=== PATIENT | female | born 1935 | race Caucasian/White ===

== ENCOUNTER 2019-03-26 16:27 | Emergency (ER) | payer OTHER ==
[2019-03-26 16:33] VITALS: BMI 29.2
--- NOTE | 2019-03-26 17:46 | PDOC ---
History of Present Illness - General Chief Complaint: Diarrhea Stated Complaint: DIZZNESS/DIARRHEA Past History - Past Medical History Allergies/Adverse Reactions: Allergies Allergy/AdvReac Type Severity Reaction Status Date / Time No Known Allergies Allergy Verified 03/26/19 16:33 Home Medications: Ambulatory Orders Sulfamethoxazole/Trimethoprim [Bactrim Ds -] 1 tab PO BID #14 tablet 03/26/19 Cancer: Yes (colon) COPD: No Dementia: Yes HTN: Yes Hypercholesterolemia: Yes - Surgical History Abdominal Surgery: Yes - Psycho Social/Smoking Cessation Hx Smoking History: Never smoked *Physical Exam - Vital Signs Last Vital Signs Temp Pulse Resp BP Pulse Ox 97.6 F 58 L 18 202/76 H 99 03/26/19 16:30 03/26/19 16:30 03/26/19 16:30 03/26/19 16:30 03/26/19 16:30 ED Treatment Course - LABORATORY CBC & Chemistry Diagram: 03/26/19 19:40 03/26/19 19:40 Medical Decision Making - Medical Decision Making 03/26/19 18:20 HPI: 83yo Mosotho-speaking female hx NIDDM, HTN, HLD, vertigo (not on medication), and Alzheimers, on B12 injections (missed doses in last 2 weeks) presents from home c/o 1 day of gradual onset since yesterday afternoon generalized weakness, nausea, decreased appetite, intermittent SOB and MESSINA, feeling hot/diaphoresis, intermittent vertigo (only when moves, same as chronic vertigo), a few episodes of NB diarrhea, and concern for high BP (not measured at home). Pt was in [place] yesterday AM and ate breakfast, then gradually worsened throughout day, worst today. Usually walks without assistance but today requires 2-person assistance 2 /2 generalized weakness. Pt has been compliant with all meds except has not been able to take B12 injections for past 2 weeks; took all other meds today as prescribed. Denies flu shot, sick contacts, recent travel, recent abx use. Denies rhinorrhea, sore throat, congestion, ear pain, tinnitus, myalgias, fever , chills, headache, light-headedness, syncope, difficulty speaking, numbness/ tingling, focal weakness, vision changes, cough, chest pain, palpitations, leg swelling, abdominal pain, blood in stool, constipation, vomiting, dysuria, hematuria, confusion. PCP - in [place] (lives in [place] with one daughter; here with other daughter who pt has been staying with in [place] for past 3 days) ROS: Constitutional: Positive for feeing hot, generalized weakness, and diaphoresis. Negative for chills, fever. HENT: Negative for sore throat, rhinorrhea, congestion. Eyes: Negative for visual disturbance. Respiratory: Positive for shortness of breath. Negative for cough, and wheezing. Cardiovascular: Positive for MESSINA. Negative for chest pain, palpitations, and leg swelling. Gastrointestinal: Positive for nausea and diarrhea. Negative for abdominal pain , blood in stool, constipation, and vomiting. Genitourinary: Negative for dysuria, flank pain, and hematuria. Musculoskeletal: Negative for myalgias, back pain, and neck pain. Skin: Negative for rash. Neurological: Positive for vertigo. Negative for light-headedness, syncope, focal weakness, numbness and headaches. Psychiatric/Behavioral: Negative for behavioral problems and confusion. PE: Gen: Alert, NAD, comfortable-appearing. HEENT: PERRL, EOMI, MMM, NCAT. No conjunctival pallor. Sclera are non-icteric. CV: Regular rate and rhythm. +systolic ejection murmur. No rubs, or gallops. PULM: No resp distress. CTAB, no wheezes, rales, or rhonchi. ABD: soft, NT/ND, no rebound tenderness or guarding, no CVA tenderness. BACK: No TTP of c/t/l-spine. No step-offs or deformities. MSK: No bony deformities. 2+ pulses in all extremities. NEURO: AAOx3. PERRL. CN 2-12 intact. 5/5 strength in all extremities. Sensation to light touch intact in all extremities. No pronator drift. No dysmetria. No dysdiadochokinesia. No abnormal nystagmus. EXTREMITIES: No cyanosis. No clubbing. No edema. No calf tenderness. PSYCH: Normal mood and thought pattern. SKIN: Warm and dry. Normal capillary refill. No rashes. ?jaundice. MDM: 83yo Mosotho-speaking female hx NIDDM, HTN, HLD, vertigo (not on medication), and Alzheimers, on B12 injections (missed doses in last 2 weeks) presents from home with 1 day of gradual onset generalized weakness, nausea, decreased appetite, intermittent SOB and MESSINA, feeling hot/diaphoresis, intermittent vertigo (only when moves, same as chronic vertigo), a few episodes of NB diarrhea, and concern for high BP (not measured at home). BP 202/76, slightly bradycardic 58, other VSS, afebrile, neurologically intact, benign abdomen. HTN: elevated BP 202/76 without headache or focal neurologic deficit. Possibly 2 /2 malabsorption of medications 2/2 diarrhea. No indication for treatment at this time. Obtain labs to r/o end-organ damage and HTN emergency. Ddx generalized weakness: dehydration, metabolic derangement, anemia, arrhythmia , ACS/TN (low concern due to lack of hx or CP, but due to MESSINA and RFs, r/o with EKG and cardiac profile), thyroid pathology, B12/folate deficiency, infection Ddx nausea, diarrhea: viral gastroenteritis, flu (low concern due to lack of myalgias, sore throat, headache, fever), food poisoning, metabolic derangement, anemia, B12 deficiency. Low concern for emergent GI pathology such as pancreatitis, appendicitis, diverticulitis, or GB pathology due to lack of abdominal pain, abdominal TTP, vomiting, or fever. Ddx vertigo: vertigo only with movement consistent with her chronic BPPV, resolved at this time. Meclizine and reassess. No tinnitus. No head injury, headache, neurologic deficit, or nystagmus concerning for ICH or posterior stroke at this time. HiNTS not applicable since not experiencing vertigo or nystagmus at time of evaluation. No neck stiffness, photophobia, headache, or fever concerning for meningitis. -EKG -CXR -Finger stick -CBC,CMP,Coags,Mg,Phos,Cardiac profile,TSH,B12,Folate,Methylmalonic acid and homocysteine,Lipase,UA/UC -Flu -Meclizine, Zofran, IVF -Dispo: pending w/u and reassessment 03/26/19 19:01 EKG reviewed: sinus bradycardia, 53bpm, normal intervals, normal axis, no ST elevations or depressions, +TWI in III, +TW flattening in aVF and V2, no prior EKG for comparison 03/26/19 19:[address] Morgan Mack. Discharge - Discharge Information Problems reviewed: Yes Clinical Impression/Diagnosis: Difficulty breathing Vomiting Qualifiers: Vomiting type: unspecified Vomiting Intractability: unspecified Nausea presence : unspecified Qualified Code(s): R11.10 - Vomiting, unspecified Condition: Improved Disposition: HOME - Additional Discharge Information Prescriptions: Sulfamethoxazole/Trimethoprim [Bactrim Ds -] 1 tab PO BID #14 tablet - Follow up/Referral - Patient Discharge Instructions Patient Printed Discharge Instructions: DI for Viral Gastroenteritis -- Adult, DI for Urinary Tract Infection (UTI) Additional Instructions: You were seen in the emergency room for difficulty breathing, weakness and diarrhea While in the emergency room, we evaluated you with lab work, blood work and imaging including an x ray of your chest. We found that your symptoms were likely caused by a viral infection of your stomach. We also found that you have a urinary tract infection. To treat your urinary tract infection, please take the following medication Bactrim DS two times a day for 7 days, by mouth We also found that your blood pressure was elevated in the emergency room. We monitored you till your blood pressure normalized. Please ensure you take your blood pressure medication on time and also measure your blood pressure at home. Please take all your medications as prescribed Please follow up with your primary care physician in 1 week Return to the emergency room, if your experience worsening of your symptoms, nausea, vomiting, diarrhea, weakness, chest pain or worsening of you condition. - Post Discharge Activity
[2019-03-26] MEDS ORDERED: ONDANSETRON 4 MG/2 ML VIAL IVPUSH ONE (18:08)
[2019-03-26] MEDS ORDERED: MECLIZINE HCL 25 MG TABLET (FP) PO ONE (18:08)
[2019-03-26] MEDS ORDERED: SODIUM CHLORIDE 0.9% 500 ML INFUS.BAG IV ONE (18:08)
[2019-03-26] MEDS ORDERED: MECLIZINE HCL 25 MG TABLET (FP) ONE (19:37)
[2019-03-26] MEDS ORDERED: ONDANSETRON 4 MG/2 ML VIAL ONE (19:38)
[2019-03-26 20:09] LABS: BASO % 0.2 % (0-2.0); EOS % 0.8 % (0-4.5); HEMATOCRIT 37.6 % (32.4-45.2); HEMOGLOBIN 12.4 GM/dL (10.7-15.3); LYMPH % 26.5 % (8-40); MCH 30.2 pg (25.7-33.7); MEAN CELL VOLUME 91.5 fl (80-96); MEAN PLT VOLUME 9.5 fl (7.5-11.1); MONO % 5.4 % (3.8-10.2); NEUT % 67.1 % (42.8-82.8); PLATELET COUNT 297 K/MM3 (134-434); RBC 4.11 M/mm3 (3.60-5.2); RDW 13.6 % (11.6-15.6); WHITE BLOOD COUNT 7.9 K/mm3 (4.0-10.0)
[2019-03-26 20:21] LABS: INR 1.01 (0.83-1.09); PROTHROMBIN TIME (PATIENT) 11.9 SEC (9.7-13.0)
[2019-03-26 20:23] LABS: ACTIVATED PTT 29.6 SECONDS (25.2-36.5)
[2019-03-26 21:10] LABS: ALK PHOS 114 U/L (45-117); ANION GAP 8 MMOL/L (8-16); BILIRUBIN,TOTAL 0.5 mg/dL (0.2-1); CALCIUM 9.4 mg/dL (8.5-10.1); CHLORIDE 104 mmol/L (98-107); CO2 25 mmol/L (21-32); CREATININE 0.7 mg/dL (0.55-1.3); GLUCOSE,RANDOM 112 mg/dL (74-106); LIPASE 81 U/L (73-393); MAGNESIUM 1.6 mg/dL (1.8-2.4); PHOSPHOROUS 3.3 mg/dL (2.5-4.9); POTASSIUM 3.9 mmol/L (3.5-5.1); SGOT/AST 18 U/L (15-37); SGPT/ALT 21 U/L (13-61); SODIUM 137 mmol/L (136-145); TOT PROT 7.8 g/dl (6.4-8.2)
[2019-03-26 21:32] LABS: EPI CELLS 0.9 /HPF (0-5/HPF); HYALINE CASTS 0 /lpf (0-8); URINE APPEARANCE CLEAR; URINE BACTERIA 7668.8 /hpf (NEGATIVE); URINE BILIRUBIN NEGATIVE (NEGATIVE); URINE COLOR YELLOW; URINE GLUCOSE (UA) NEGATIVE (NEGATIVE); URINE KETONE NEGATIVE (NEGATIVE); URINE LEUK ESTERASE TRACE (NEGATIVE); URINE NITRITE NEGATIVE (NEGATIVE); URINE PROTEIN NEGATIVE (NEGATIVE); URINE RBC 0 /hpf (0-4); URINE UROBILINOGEN 0.2 mg/dL (0.2-1.0); URINE WBC 2 /hpf (0-5)
--- NOTE | 2019-03-26 22:54 | PDOC ---
Documentation entered by Lluvia Yeung SCRIBE, acting as scribe for Vic Gonzales MD. Vic Gonzales MD: This documentation has been prepared by the scribe, Lluvia Yeung SCRIBE, under my direction and personally reviewed by me in its entirety. I confirm that the documentation accurately reflects all work, treatment, procedures, and medical decision making performed by me. Attending Attestation - Resident Resident Name: Hollie Nielson - ED Attending Attestation I have performed the following: I have examined & evaluated the patient, The case was reviewed & discussed with the resident, I agree w/resident's findings & plan, Exceptions are as noted - HPI HPI: 03/26/19 18:41 The patient is an 83-year-old female with a past medical history significant for NIDDM, HTN, HLD, Alzheimer's, dementia, and GERD who presents to the emergency department with vertigo, nausea, and diarrhea. The patient reports a 2 -day history of dizziness and nausea, which has been ongoing this morning and afternoon, promoting the ED visit. The patient has some episodes of vomiting yesterday, denies vomiting today. The patient reports associated symptoms of weakness and 3 episodes of loose stool, denies hematochezia or melena. The patient states additional complaints of intermittent episodes of shortness of breath while lying down. Denies abdominal pain, fever, chills, exertional chest pain, dyspnea on exertion, diaphoresis, or sick contact. Allergies: NKA Social history: patient lives with sister in [place], and is here visiting family. PCP: In [place]. - Physicial Exam PE: 03/26/19 20:01 GENERAL: The patient is awake, alert, Nontoxic - in no acute distress. HEAD: Normocephalic, atraumatic. EYES: extraocular movements intact, sclera anicteric, conjunctiva clear. ENT: Normal voice, Moist mucous membranes. NECK: Normal range of motion, supple without lymphadenopathy, JVD, or masses. LUNGS: Breath sounds equal, clear to auscultation bilaterally. No wheezes, no crackles, no rales. HEART: Regular rate and rhythm, normal S1 and S2 without murmur, rub or gallop. ABDOMEN: Soft, nontender, normoactive bowel sounds. No guarding, no rebound. No masses. EXTREMITIES: Normal range of motion, no edema. No clubbing or cyanosis. No cords, erythema, or tenderness. NEUROLOGICAL: No facial asymmetry, Normal speech PSYCH: Normal mood, normal affect. SKIN: Warm, Dry, normal turgor, no rashes or lesions noted. - Medical Decision Making 03/26/19 18:46 83y F hx of alzheimers, NIDDM, HTN, HL, vertigo, presents with complaint of feeling intermitent dizines the past 2 days that i only there when she i walkin around - associated wih mild nausea earlier, also notes 3 episodes of loose non bloody stool today and generalized weakness. pt also notes some sob occaionaly when she is sleeping. denies any dent, cp w exertion, palps, lighheadedness. Pt denies any abdominal pain, fever/chills, cp, bpr, current nausea, headache, vision changes, focal numnbess/tingling/wekaness, dysarthria. exam unremakble will ck lbas to screen fo metabolic derangements 03/26/19 22:48 lbas reviewed pt masha montero bp impoved will dc with pmd fu return precautions were discussed
--- NOTE | 2019-03-26 23:11 | PDOC ---
*Physical Exam - Vital Signs Last Vital Signs Temp Pulse Resp BP Pulse Ox 97.6 F 58 L 18 202/76 H 99 03/26/19 16:30 03/26/19 16:30 03/26/19 16:30 03/26/19 16:30 03/26/19 16:30 - Physical Exam General Appearance: Yes: Nourished, Appropriately Dressed HEENT: positive: EOMI, MELONY, Normal ENT Inspection, Pharynx Normal Neck: positive: Trachea midline, Normal Thyroid, Supple Respiratory/Chest: positive: Lungs Clear, Normal Breath Sounds. negative: Crackles, Wheezing Cardiovascular: positive: Regular Rhythm, Regular Rate, S1, S2. negative: Murmur, Gallop/S3, Gallop/S4 Vascular Pulses: Dorsalis-Pedis (R): 2+, Doralis-Pedis (L): 2+ Gastrointestinal/Abdominal: positive: Normal Bowel Sounds, Soft. negative: Distended, Guarding, Rebound Neurologic: positive: Fully Oriented, Alert, Normal Mood/Affect ED Treatment Course - LABORATORY CBC & Chemistry Diagram: 03/26/19 19:40 03/26/19 19:40 - ADDITIONAL ORDERS Additional order review: Laboratory Results 03/26/19 03/26/19 03/26/19 20:49 19:40 19:40 PT with INR 11.90 INR 1.01 PTT (Actin FS) 29.6 Sodium Potassium Chloride Carbon Dioxide Anion Gap BUN Creatinine Est GFR (CKD-EPI)AfAm Est GFR (CKD-EPI)NonAf Random Glucose Lactic Acid 1.4 Calcium Phosphorus Magnesium Total Bilirubin AST ALT Alkaline Phosphatase Creatine Kinase Troponin I Total Protein Albumin Lipase Vitamin B12 Serum Folate TSH Urine Color Yellow Urine Appearance Clear Urine pH 6.0 Ur Specific [place] 1.006 L Urine Protein Negative Urine Glucose (UA) Negative Urine Ketones Negative Urine Blood Negative Urine Nitrite Negative Urine Bilirubin Negative Urine Urobilinogen 0.2 Ur Leukocyte Esterase Trace Urine WBC (Auto) 2 Urine RBC (Auto) 0 Urine Casts (Auto) 0 U Epithel Cells (Auto) 0.9 Urine Bacteria (Auto) 7668.8 03/26/19 19:40 PT with INR INR PTT (Actin FS) Sodium 137 Potassium 3.9 Chloride 104 Carbon Dioxide 25 Anion Gap 8 BUN 14.0 Creatinine 0.7 Est GFR (CKD-EPI)AfAm 94.18 Est GFR (CKD-EPI)NonAf 81.26 Random Glucose 112 H Lactic Acid Calcium 9.4 Phosphorus 3.3 Magnesium 1.6 L Total Bilirubin 0.5 AST 18 ALT 21 Alkaline Phosphatase 114 Creatine Kinase 35 Troponin I < 0.02 Total Protein 7.8 Albumin 4.0 Lipase 81 Vitamin B12 519 Serum Folate 25 H TSH 1.45 Urine Color Urine Appearance Urine pH Ur Specific [place] Urine Protein Urine Glucose (UA) Urine Ketones Urine Blood Urine Nitrite Urine Bilirubin Urine Urobilinogen Ur Leukocyte Esterase Urine WBC (Auto) Urine RBC (Auto) Urine Casts (Auto) U Epithel Cells (Auto) Urine Bacteria (Auto) 03/26/19 19:40 RBC 4.11 MCV 91.5 MCHC 33.0 RDW 13.6 MPV 9.5 Neutrophils % 67.1 Lymphocytes % 26.5 Monocytes % 5.4 Eosinophils % 0.8 Basophils % 0.2 - Medications Given in the ED: ED Medications Discontinued Medications Generic Name Dose Route Start Last Admin Trade Name Freq PRN Reason Stop Dose Admin Meclizine HCl 25 mg 03/26/19 18:08 03/26/19 19:54 Antivert - PO 03/26/19 18:09 25 mg ONCE ONE Administration Ondansetron HCl 4 mg 03/26/19 18:08 03/26/19 19:55 Zofran Injection IVPUSH 03/26/19 18:09 4 mg ONCE ONE Administration Sodium Chloride 1,000 ml 03/26/19 18:08 03/26/19 19:54 Normal Saline - IV 03/26/19 18:09 1,000 ml ONCE ONE Administration Medical Decision Making - Medical Decision Making 83 y/o F, alzheimers, NIDDM, HTN, HL, vertigo, presented with SOB, loose stool and generalized weakness #SOB and Generalized weakness 2/2 to diarrhea from likely viral gastroenteritis now resolved CBC, CMP normal UA positive for UTI Pt discharged home on Bactrim DS BID x7days Blood pressure now down to 155/68 Educated pt on checking BP and compliance with BP meds D/c planning 03/26/19 23:29 Discharge - Discharge Information Problems reviewed: Yes Clinical Impression/Diagnosis: Difficulty breathing Vomiting Qualifiers: Vomiting type: unspecified Vomiting Intractability: unspecified Nausea presence : unspecified Qualified Code(s): R11.10 - Vomiting, unspecified Condition: Improved Disposition: HOME - Admission No - Additional Discharge Information Prescriptions: Sulfamethoxazole/Trimethoprim [Bactrim Ds -] 1 tab PO BID #14 tablet - Follow up/Referral - Patient Discharge Instructions Patient Printed Discharge Instructions: DI for Viral Gastroenteritis -- Adult, DI for Urinary Tract Infection (UTI) Additional Instructions: You were seen in the emergency room for difficulty breathing, weakness and diarrhea While in the emergency room, we evaluated you with lab work, blood work and imaging including an x ray of your chest. We found that your symptoms were likely caused by a viral infection of your stomach. We also found that you have a urinary tract infection. To treat your urinary tract infection, please take the following medication Bactrim DS two times a day for 7 days, by mouth We also found that your blood pressure was elevated in the emergency room. We monitored you till your blood pressure normalized. Please ensure you take your blood pressure medication on time and also measure your blood pressure at home. Please take all your medications as prescribed Please follow up with your primary care physician in 1 week Return to the emergency room, if your experience worsening of your symptoms, nausea, vomiting, diarrhea, weakness, chest pain or worsening of you condition. - Post Discharge Activity
[2019-03-27 00:17] VITALS: BP 154/62; PULSE 55; TEMP 98
--- NOTE | 2019-03-27 11:29 | EKG ---
Test Reason : Blood Pressure : / mmHG Vent. Rate : 053 BPM Atrial Rate : 053 BPM P-R Int : 136 ms QRS Dur : 082 ms QT Int : 482 ms P-R-T Axes : 029 -16 009 degrees QTc Int : 452 ms SINUS BRADYCARDIA MINIMAL VOLTAGE CRITERIA FOR LVH, MAY BE NORMAL VARIANT SEPTAL INFARCT , AGE UNDETERMINED ABNORMAL ECG NO PREVIOUS ECGS AVAILABLE Confirmed by ILANA WHITE MD ([id number]) on 03/27/2019 11:28:55 AM Referred By: Confirmed By:ILANA WHITE MD
== END 2019-03-27 00:17 | disposition home or self-care (01) ==
LOC: JER 16:27
PROC: 3E033GC Introduction of Other Therapeutic Substance into Peripheral Vein, Percutaneous Approach (ICD-10-PCS; principal; 2019-03-26)
DX: N39.0 Urinary tract infection, site not specified (principal); K52.9 Noninfective gastroenteritis and colitis, unspecified; R06.02 Shortness of breath; I10 Essential (primary) hypertension; E78.5 Hyperlipidemia, unspecified; E11.9 Type 2 diabetes mellitus without complications; Z79.84 Long term (current) use of oral hypoglycemic drugs; G30.9 Alzheimer's disease, unspecified; F02.80 Dementia in other diseases classified elsewhere, unspecified severity, without behavioral disturbance, psychotic disturbance, mood disturbance, and anxiety; Z85.038 Personal history of other malignant neoplasm of large intestine
CPT/HCPCS: 36415; 71045-TC-FY; 80053; 81003; 82136; 82550; 82607; 82746; 83605; 83690; 83735; 83918; 84100; 84443; 84484; 85025; 85610; 85730; 87086; 87186; 87804; 93005; 93010; 96374; 99283-25

== ENCOUNTER 2019-03-30 19:39 | Emergency (ER) | payer OTHER ==
[2019-03-30 20:14] VITALS: TEMP 97.8; BMI 27.4
--- NOTE | 2019-03-30 22:37 | PDOC ---
History of Present Illness - General Chief Complaint: Nausea Stated Complaint: vomiting/nausea Time Seen by Provider: 03/30/19 22:36 Past History - Past Medical History Allergies/Adverse Reactions: Allergies Allergy/AdvReac Type Severity Reaction Status Date / Time No Known Allergies Allergy Verified 03/26/19 16:33 Home Medications: Ambulatory Orders Sulfamethoxazole/Trimethoprim [Bactrim Ds -] 1 tab PO BID #14 tablet 03/26/19 Meclizine HCl 25 mg PO DAILY PRN #6 tablet 03/31/19 Cancer: Yes (colon) COPD: No Dementia: Yes HTN: Yes Hypercholesterolemia: Yes - Surgical History Abdominal Surgery: Yes - Psycho Social/Smoking Cessation Hx Smoking History: Never smoked *Physical Exam - Vital Signs Last Vital Signs Temp Pulse Resp BP Pulse Ox 97.8 F 51 L 19 140/74 98 03/30/19 20:10 03/30/19 20:10 03/30/19 20:10 03/30/19 20:10 03/30/19 20:10 ED Treatment Course - LABORATORY CBC & Chemistry Diagram: 03/31/19 01:26 03/31/19 01:26 Medical Decision Making - Medical Decision Making 03/30/19 22:55 HPI: 83yo Kinyarwanda-speaking female hx NIDDM, HTN, HLD, vertigo (not on medication), and Alzheimers, on B12 injections (missed doses in last 2 weeks) presents from home c/o generalized weakness (improving) and intermittent nausea and vertigo only with movement exactly the same as chronic vertigo, improved with meclizine and zofran during prior ED visit 03/26/19, requesting prescriptions for both. Pt was here 03/16/19 for generalized weakness, nausea, decreased appetite, intermittent SOB and MESSINA, feeling hot, intermittent vertigo, and diarrhea, dx with UTI and started on Bactrim, has been taking as prescribed. Pt was given zofran and meclizine 03/26/19 with improvement in vertigo and nausea. Since discharge pt was feeling better, all sx resolved except for generalized weakness and feelign hot, which are improving, pt now able to walk on own. Yesterday night the intermittent episodes of nausea and vertigo returned, 1 episode today at 1300, exactly the same as chronic vertigo. Pt was not given meclizine or zofran rx and would like those. Pt has been taking BP meds as prescribed. Denies flu shot, sick contacts, recent travel, head injury. Denies rhinorrhea, sore throat, congestion, ear pain, tinnitus, myalgias, fever, chills , headache, light-headedness, syncope, difficulty speaking, numbness/tingling, focal weakness, vision changes, cough, chest pain, palpitations, leg swelling, abdominal pain, blood in stool, constipation, vomiting, dysuria, hematuria, confusion, decreased appetitie, SOB, MESSINA, diaphoresis, diarrhea. PCP - in [place] (lives in [place] with one daughter; here with other daughter who pt has been staying with in [place] for past week) ROS: Constitutional: Positive for feeling hot, generalized weakness. Negative for chills, fever, and diaphoresis. HENT: Negative for sore throat, rhinorrhea, congestion. Eyes: Negative for visual disturbance. Respiratory: Negative for shortness of breath, cough, and wheezing. Cardiovascular: Negative for chest pain, palpitations, MESSINA, and leg swelling. Gastrointestinal: Positive for nausea. Negative for abdominal pain, blood in stool, constipation, diarrhea, and vomiting. Genitourinary: Negative for dysuria, flank pain, and hematuria. Musculoskeletal: Negative for myalgias, back pain, and neck pain. Skin: Negative for rash. Neurological: Positive for vertigo. Negative for light-headedness, syncope, focal weakness, numbness and headaches. Psychiatric/Behavioral: Negative for behavioral problems and confusion. PE: Gen: Alert, NAD, comfortable-appearing. HEENT: PERRL, EOMI, MMM, NCAT. No conjunctival pallor. Sclera are non-icteric. CV: Regular rate and rhythm. +systolic ejection murmur. No rubs, or gallops. PULM: No resp distress. CTAB, no wheezes, rales, or rhonchi. ABD: soft, NT/ND, no rebound tenderness or guarding, no CVA tenderness. BACK: No TTP of c/t/l-spine. No step-offs or deformities. MSK: No bony deformities. 2+ pulses in all extremities. NEURO: AAOx3. PERRL. CN 2-12 intact. 5/5 strength in all extremities. Sensation to light touch intact in all extremities. No pronator drift. No dysmetria. No dysdiadochokinesia. No abnormal nystagmus. EXTREMITIES: No cyanosis. No clubbing. No edema. No calf tenderness. PSYCH: Normal mood and thought pattern. SKIN: Warm and dry. Normal capillary refill. No rashes. MDM: 83yo Kinyarwanda-speaking female hx NIDDM, HTN, HLD, vertigo (not on medication), and Alzheimers, on B12 injections (missed doses in last 2 weeks) presents from home with generalized weakness (improving) and intermittent nausea and vertigo only with movement exactly the same as chronic vertigo, improved with meclizine and zofran during prior ED visit 03/26/19, requesting prescriptions for both. Bradycardic to 51 (58 on 03/26/19), other VSS, afebrile, neurologically intact, benign abdomen exam. 03/26/19 w/u: EKG, CXR,CBC,CMP,Coags,Mg,Phos,Cardiac profile,TSH,B12,Folate, Methylmalonic acid and homocysteine,Lipase,UA/UC,flu. Of note, UA positive for UTI, UC grew Klebsiella susceptible to Bactrim. Pt has been taking Bactrim as prescribed since d/c; denies urinary sx. Pt's dizziness and nausea at that time resolved with Zofran, Meclizine, and IVF. Nausea, vertigo: Due to sx only with movement, improvement of nausea and vomiting with meclizine, sx consistent with chronic vertigo, most likely BPPV, resolved at this time. No tinnitus. No head injury, headache, neurologic deficit , or nystagmus concerning for ICH or posterior stroke at this time. HiNTS not applicable since not experiencing vertigo or nystagmus at time of evaluation. No neck stiffness, photophobia, headache, or fever concerning for meningitis. Consider orthostatic hypotension - obtain orthostatic VS. Generalized weakness: improving since 03/26/19. Most likely 2/2 UTI, UC grows Klebsiella susceptible to current tx Bactrim. Pt eating and drinking well. No neuro deficits. Pt able to walk without assistance. No fever, chills, vomiting, diarrhea, abdominal pain, chest pain, difficulty breathing, or new symptoms concerning for anemia, ACS/NV, thyroid pathology, systemic infection. 03/26/19 results w/u only positive for UTI, no new sx since. -EKG -Orthostatic VS -Dispo: pending w/u, likely d/c home w/PCP, and rx for meclizine and zofran 03/31/19 01:14 EKG reviewed: sinus bradycardia, 48bpm, prolonged QT, QTc 518ms, IA interval 142ms, QRS duration 74ms, no e/o acute ischemia. Compared to 03/16, new prolonged QTc (03/26: sinus bradycardia, QTc 452ms) Due to prolonged QT and intermittent vertigo, w/u with labs and CXR. US IV placed. -CBC,CMP,Coags,Mg,Phos,TSH,Cardiac profile,CXR 03/31/19 03:34 Labs reviewed. No concerning findings. CXR reviewed: no acute pathology Repeat EKG: Sinus bradycardia, 49bpm, QTc 453ms, no TWI, no ST elevations or depressions. Compared to prior today, normal QTc replaced prolonged QTc. Pt asymptomatic, prolonged QT resolved. Will d/c home w/meclizine and multiple referrals for ENT, neuro, cardio, and PCP. Return precautions given. Pt understands all dc instructions and all questions were answered. Discharge - Discharge Information Problems reviewed: Yes Clinical Impression/Diagnosis: Vertigo, Prolonged QT interval Condition: Improved Disposition: HOME - Admission No - Additional Discharge Information Prescriptions: Meclizine HCl 25 mg PO DAILY PRN #6 tablet PRN Reason: Vertigo - Follow up/Referral Referrals: ON STAFF,NOT [Primary Care Provider] - [facility] [place] [Provider Group] Fredis Ugarte MD [Staff Physician] - Chun Adams MD [Staff Physician] - Phillip Musa MD [Staff Physician] - - Patient Discharge Instructions Patient Printed Discharge Instructions: DI for Vertigo Additional Instructions: Te cantrell visto en el departamento de emergencias por vrtigo y nuseas. Ramos electrocardiograma tuvo un ritmo anormal (prolongacin del intervalo QT) probablemente debido a Zofran. Se resolvi despus de que te dimos magnesio. Asegrese de informarle a ramos mdico de atencin primaria sobre esto. Tambin asegrese de evitar cualquier medicamento que tenga el efecto secundario de la prolongacin del intervalo QT. Para ramos vrtigo, hemos enviado max receta de Meclizine a [facility]. Es solo por 6 chairez , as que asegrese de hacer un seguimiento con ramos mdico de atencin primaria dentro de 1 semana para obtener recetas adicionales. Le hemos dado mltiples referencias: llame a cada oficina por la maana para programar citas de seguimiento con: - Cardilogo (mdico bev garcia) Dr. Musa - para ramos ritmo cardaco anormal - ENT (inez de paz garganta) Dr. Ugarte - para el vrtigo - Neurlogo (mdico del cerebro) Dr. Adams - para el vrtigo - Clnica de atencin primaria en [place] - para atencin primaria y seguimiento Regrese al Departamento de Emergencias de inmediato si experimenta cualquier sntoma nuevo o preocupante, incluida la incapacidad para mantener bajos los lquidos, la incapacidad para caminar, la dificultad para hablar, entumecimiento u hormigueo, fiebre o vmitos. You have been seen in the Emergency Department for your vertigo and nausea. Your EKG had an abnormal rhythm (QT prolongation) most likely due to Zofran. It resolved after we gave you Magnesium. Make sure to tell your primary care doctor about this. Also make sure you avoid any medications that have the side effect of QT prolongation. For your vertigo, we have sent a prescription for Meclizine to [facility]. It is only for 6 days so make sure to follow up with your primary care doctor within 1 week for additional prescriptions. We have given you multiple referrals - call each office in the morning to set up follow-up appointments with: - Laborer/Grade Check (heart doctor) Dr Francescone - for your abnormal heart rhythm - ENT (ear nose throat) Dr Ugarte - for vertigo - Neurologist (brain doctor) Dr Adams - for vertigo - Primary care clinic at [place] - for primary care and follow-up Return to the Emergency Department immediately if you experience any new or concerning symptoms including inability to keep liquids down, inability to walk , difficulty speaking, numbness or tingling, fever, or vomiting. - Post Discharge Activity
--- NOTE | 2019-03-30 23:52 | PDOC ---
Documentation entered by Ani Cha SCRIBE, acting as scribe for Faith Grayson DO. Faith Grayson DO: This documentation has been prepared by the Semaj marinelli Joy, SCRIBE, under my direction and personally reviewed by me in its entirety. I confirm that the documentation accurately reflects all work, treatment, procedures, and medical decision making performed by me. Attending Attestation - Resident Resident Name: Hollie Nielson - ED Attending Attestation I have performed the following: I have examined & evaluated the patient, The case was reviewed & discussed with the resident, I agree w/resident's findings & plan, Exceptions are as noted - HPI HPI: 03/30/19 23:25 The patient is a 83 year old hebrew speaking female with significant past medical history of NIDDM, HTN, HLD, GERD, vertigo, dementia, and Alzheimers, on B12 injections who presents to the ED with nausea vomiting diarrhea and dizziness since the last couple of days. As per patients daughter, the patient was here on 03/26/19 for similar symptoms and had a normal full workup. The patient went home and the patients daughter endorses that she has been treating the patient with her own meclizine. The patient reports ongoing nausea and dizziness since last night and adds that it worsens when she stands. Allergies: NKA - Physicial Exam PE: 03/30/19 23:43 Gen: aaox3, nad heent: PERRL, EOMI, TM intact without erythema or bulging, posterior pharynx clear, L facial droop x 30+ years neck: supple heart: +s1s2 pastor lungs: cta b/l abd: soft, nt/nd +bs ext: no c/c/e, muscle strength 5/5 UE and LE neuro: old paralysis L face and L facial droop x 30 years, sensation intact, muscle strength 5/5 UE and LE, no focal neuro deficits that are new - Medical Decision Making 03/30/19 23:45 a/p: 83yo female with intermittent dizziness -pt denies all symptoms at this time -pt states vertigo was dx by her doc in [facility] -states she has been taking her daughters meclizine this week for hte vertigo -states she only feels dizzy when she changes position -no other new focal neuro findings -orthostatic vs 116/57 laying, 121/52 sitting, 140/58 standing -will order EKG and monitor 03/31/19 00:43 pt with qtc prolongation and dizziness will send labs -will monitor and reassess 03/31/19 02:07 pt with qtc prolongation, mag was low a few days ago, will replace mag 03/31/19 02:07 pt signed out to the nighttime attending pending labs and re-eval pt was not symptomatic with orthostatic vs Heart Score/ECG Review - ECG Intrepretation Comment:: 03/31/19 00:43 sinus pastor at 48, qtc 518, abnl ekg
[2019-03-31 01:42] LABS: BASO % 0.3 % (0-2.0); EOS % 2.5 % (0-4.5); HEMATOCRIT 36.5 % (32.4-45.2); HEMOGLOBIN 11.7 GM/dL (10.7-15.3); LYMPH % 37.6 % (8-40); MCH 29.8 pg (25.7-33.7); MCHC 32.1 g/dl (32.0-36.0); MEAN CELL VOLUME 92.6 fl (80-96); MEAN PLT VOLUME 9.4 fl (7.5-11.1); MONO % 6.7 % (3.8-10.2); NEUT % 52.9 % (42.8-82.8); PLATELET COUNT 274 K/MM3 (134-434); RBC 3.94 M/mm3 (3.60-5.2); RDW 13.8 % (11.6-15.6)
[2019-03-31] MEDS ORDERED: MAGNESIUM SULF 50% (8.12 MEQ/2 ML-1 GM VIAL) IVPB ONE (01:54)
[2019-03-31 01:55] LABS: INR 1.01 (0.83-1.09); PROTHROMBIN TIME (PATIENT) 11.9 SEC (9.7-13.0)
[2019-03-31] MEDS ORDERED: MAGNESIUM SULFATE IN WATER 2 GM/50 ML IVPB IVPB ONE (02:12)
[2019-03-31 02:26] LABS: ALBUMIN 3.7 g/dl (3.4-5.0); BILIRUBIN,TOTAL 0.6 mg/dL (0.2-1); BLOOD UREA NITROGEN 11.8 mg/dL (7-18); CALCIUM 9.1 mg/dL (8.5-10.1); CREATININE 1.1 mg/dL (0.55-1.3); MAGNESIUM 1.8 mg/dL (1.8-2.4); PHOSPHOROUS 3.3 mg/dL (2.5-4.9); POTASSIUM 4.3 mmol/L (3.5-5.1); TOT PROT 7.2 g/dl (6.4-8.2)
[2019-03-31 03:50] VITALS: BP 118/52; PULSE 52
--- NOTE | 2019-03-31 13:21 | EKG ---
Test Reason : Blood Pressure : / mmHG Vent. Rate : 049 BPM Atrial Rate : 049 BPM P-R Int : 144 ms QRS Dur : 084 ms QT Int : 502 ms P-R-T Axes : 027 -05 018 degrees QTc Int : 453 ms SINUS BRADYCARDIA MINIMAL VOLTAGE CRITERIA FOR LVH, MAY BE NORMAL VARIANT BORDERLINE ECG WHEN COMPARED WITH ECG OF 31-MAR-2019 00:24, QT HAS SHORTENED Confirmed by ISIS RIVERA MD ([id number]) on 03/31/2019 1:20:49 PM Referred By: Confirmed By:ISIS RIVERA MD
--- NOTE | 2019-03-31 13:22 | EKG ---
Test Reason : Blood Pressure : / mmHG Vent. Rate : 048 BPM Atrial Rate : 048 BPM P-R Int : 142 ms QRS Dur : 074 ms QT Int : 580 ms P-R-T Axes : 025 -10 -22 degrees QTc Int : 518 ms SINUS BRADYCARDIA PROLONGED QT ABNORMAL ECG WHEN COMPARED WITH ECG OF 26-MAR-2019 18:46, CRITERIA FOR SEPTAL INFARCT ARE NO LONGER PRESENT QT HAS LENGTHENED Confirmed by MIGUEL SALDANA, ISIS ([id number]) on 03/31/2019 1:21:29 PM Referred By: Confirmed By:ISIS RIVERA MD
== END 2019-03-31 04:57 | disposition home or self-care (01) ==
LOC: JER 19:39
DX: H81.10 Benign paroxysmal vertigo, unspecified ear (principal); R94.31 Abnormal electrocardiogram [ECG] [EKG]; I10 Essential (primary) hypertension; E78.5 Hyperlipidemia, unspecified; E11.9 Type 2 diabetes mellitus without complications; Z79.84 Long term (current) use of oral hypoglycemic drugs; G30.9 Alzheimer's disease, unspecified; F02.80 Dementia in other diseases classified elsewhere, unspecified severity, without behavioral disturbance, psychotic disturbance, mood disturbance, and anxiety
CPT/HCPCS: 36415; 71045-TC-FY; 80053; 82550; 83735; 84100; 84443; 84484; 85025; 85610; 93005; 93010; 99283-25